=== PATIENT | male | born 1990 | race Two or more races ===

== ENCOUNTER 2017-06-17 14:38 | Emergency (ER) | payer MEDICAID ==
[~2017-06-17] VITALS: Ht 180.3 cm; Wt 74.8 kg
[~2017-06-17 14:38] MED LIST: OLAN20TA17 PO; SERT-160 PO
[2017-06-17 18:36] VITALS: BP 131/94
== END 2017-06-17 22:55 | disposition left against medical advice (07) ==
LOC: ER 14:38
DX: T65.91XA Toxic effect of unspecified substance, accidental (unintentional), initial encounter (principal); Z53.21 Procedure and treatment not carried out due to patient leaving prior to being seen by health care provider; Y93.89 Activity, other specified; Y99.8 Other external cause status; Y92.89 Other specified places as the place of occurrence of the external cause

== ENCOUNTER 2024-04-18 23:05 | Emergency (ER) | payer MEDICAID ==
[~2024-04-18] VITALS: Ht 180.3 cm; Wt 79.3 kg
[~2024-04-18 23:05] MED LIST changes: +OLAN1TAB75 PO; -OLAN20TA17 PO
--- NOTE | 2024-04-18 23:58 | ED.PDOC ---
Psychiatric HPI Comments 33-year-old male who came to er for anxiety. Patient has history of s chizophrenia and depression and regularly takes medications for it. Past few days patient has been feeling very anxious, agitated and restless. Patient has no medications for his anxiety. Worsening of symptoms prompted patient to have the ER. He denies any hallucinations, denies any suicidal or homicidal ideations. Vital signs were stable on arrival Chief Complaint: Anxiety Time Seen by MD: 23:56 Primary Care Provider: MARANDA Gregg Notes: Nurses Notes Information Source: Patient, Relative (Sibling) Mode of Arrival: Ambulatory Severity: Unable to Care for Self, Unable to Control Self Severity of Pain: None Severity of Mental Status: Moderate Severity of Symptoms: Moderate Timing: Days Duration: Intermittent Prehospital treatment: None Presents with: Anxiety, Unclear Thinking Circumstance: Medical Clearance Current substance abuse: None Stressors: None History of: Depression, Schizophrenia Associated signs and symptoms: Hopeless, Anxiety Past Medical History PAST MEDICAL HISTORY: Anxiety, Depression, Schizophrenia Surgical History: Denies all surgeries Family History Family History: Reviewed,noncontributory to illness Social History Smoker: Non-Smoker Alcohol: Denies ETOH Use Drugs: Denies Drug Use Lives In: Home Constitutional: denies: chills, diaphoresis, fatigue, fever, malaise, sweats, weakness, others EENTM: denies: blurred vision, double vision, ear bleeding, ear discharge, ear drainage, ear pain, ear ringing, eye pain, eye redness, hearing loss, mouth pain, mouth swelling, nasal discharge, nose bleeding, nose congestion, nose pain, photophobia, tearing, throat pain, throat swelling, voice changes, others Respiratory: denies: cough, hemoptysis, orthopnea, SOB at rest, shortness of breath, SOB with excertion, stridor, wheezing, others Cardiovascular: denies: chest pain, dizzy spells, diaphoresis, Dyspnea on e xertion, edema, irregular heart beat, left arm pain, lightheadedness, palpitations, PND, syncope, others Gastrointestinal: denies: abdomen distended, abdominal pain, blood streaked bowels, constipated, diarrhea, dysphagia, difficulty swallowing, hematemesis, melena, nausea, poor appetite, poor fluid intake, rectal bleeding, rectal pain, vomiting, others Genitourinary: denies: burning, dysuria, flank pain, frequency, hematuria, incontinence, penile discharge, penile sore, pain, testicle pain, testicle swelling, urgency, others Neurological: denies: dizziness, fainting, headache, left sided numbness, left sided weakness, numbness, paresthesia, pre-existing deficit, right sided numbness, right sided weakness, seizure, speech problems, tingling, tremors, weakness, others Musculoskeletal: denies: back pain, gout, joint pain, joint swelling, muscle pain, muscle stiffness, neck pain, others Integumetry: denies: bruises, change in color, change in hair/nails, dryness, laceration, lesions, lumps, rash, wounds, others Allergic/Immunocompromised: denies: Difficulty Healing, Frequent Infections, Hives, Itching, others Hematologic/Lymphatic: denies: anemia, blood clots, easy bleeding, easy bruising, swollen glands, others Endocrine: denies: excessive hunger, excessive sweating, excessive thirst, excessive urination, flushing, intolerance to cold, intolerance to heat, unexplained weight gain, unexplained weight loss, others Psychiatric: reports: anxiety, panic disorder; denies: bipolar disorder, depression, hopeless, schizophrenia, sleepless, suicidal, others Physical Exam General Appearance: Moderate Distress ([id number] distress due to anxiety concerns.), Normal HEENT: Normal ENT Inspection, Pharynx Normal, TMs Normal Neck: Full Range of Motion, Non-Tender, Normal, Normal Inspection Respiratory: Chest Non-Tender, Lungs Clear, No Accessory Muscle Use, No Respiratory Distress, Normal Breath Sounds Cardiovascular: No Edema, No JVD, No Murmur, No Gallop, Normal Peripheral Pulses, Regular Rate/Rhythm Breast Exam: Deferred Gastrointestinal: No Organomegaly, Non Tender, No Pulsatile Mass, Normal Bowel Sounds, Soft Genitalia: Deferred Pelvic: Deferred Rectal: Deferred Extremities: No calf tenderness, Normal capillary refill, Normal inspection, Normal range of motion, Non-tender, No pedal edema Musculoskeletal : Apperance: Normal Neurologic: Alert, 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 Was a procedure done?: No Psych Differential Dx Psych. Differential Dx: Anxiety, Hopeless, Panic Disorder X-Ray, Labs, Meds, VS Vital Signs Date Time Temp Pulse Resp B/P (MAP) Pulse Ox O2 Delivery O2 Flow Rate FiO2 04/19/24 00:00 118 20 95 Room Air* 0 21 04/19/24 00:00 98.1 118 20 120/84 (96) 95 98.1 04/18/24 23:18 98.0 122 18 115/85 (95) 97 Current Medications Medications (Trade) Dose Ordered Sig/Rahat Route Start Time Stop Time Status Last Admin Alprazolam (Xanax Tablet) 0.5 mg ONCE ONCE PO 04/19/24 00:00 04/19/24 00:01 DC 04/19/24 00:13 X-Ray, Labs, Meds, VS Comment Patient responded well to medication dispensed to the ED today. Advised the patient and family to follow up with psychiatrist for continued evaluation and management of his multiple psychosis concerns including anxiety. Time of 1ST Reevaluation: 00:37 Reevaluation 1ST: Improved Consultation: PCP, Psychiatry Patient Education/Counseling: Diagnosis, Treatment Family Education/Counseling: Diagnosis, Treatment Departure 1 Departure Time of Disposition: 00:37 Impression: Primary Impression: Anxiety Disposition: 01 HOME / SELF CARE / HOMELESS Condition: Stable Additional Instructions: Advised patient utilize medication as needed and follow up with psychiatrist for continued evaluation and discussions related to his multiple psychosis concerns including anxiety. e-Prescriptions Alprazolam (Xanax) 0.5 Mg Tb 1 TAB PO Q12HP PRN, #10 TAB Prov: MARSHA RAMIREZ PAC 04/19/24 Discharged With: Self, Relative Critical Care Note Critical Care Time?: No Stability Stability form required: No Heart Score Heart Score: Heart Score Response (Comments) Value History N/A 0 EKG N/A 0 Age N/A 0 Risk Factors N/A 0 Troponin N/A 0 Total 0 I personally scribed for MARSHA RAMIREZ PAC ([email or web address]) on 04/18/24 at 23:58. Electronically submitted by Rick Samuel ([email or web address]). MARSHA RAMIREZ PAC Apr 18, 2024 23:58
[2024-04-19] VITALS: BP 120/84; PULSE 118; RESP 20; TEMP 98.1; O2SAT 95
[2024-04-19] MEDS: ALPRAZolam 0.5 MG TAB PO ONE (00:13)
[2024-04-19] MEDS ORDERED: ALPR0.5T PO (00:38)
== END 2024-04-19 01:25 | disposition home or self-care (01) ==
LOC: ER 23:05
DX: F41.9 Anxiety disorder, unspecified (principal); F32.A Depression, unspecified; F20.9 Schizophrenia, unspecified

== ENCOUNTER 2024-06-26 03:30 | Emergency (ER) | payer MEDICAID ==
[~2024-06-26] VITALS: Ht 172.7 cm; Wt 72.7 kg
[~2024-06-26 03:30] MED LIST changes: +ALPR0.5T PO
--- NOTE | 2024-06-26 06:49 | ED.PDOC ---
GI ASSESSMENT HPI Comments 34 year old male presents to the ED with chief complaint of abdominal pain. Patient reports that he has been experiencing nausea, vomiting, and abdominal pain since earlier this morning. Patient relays that he believes he was poisoned. Patient denies any diarrhea, chest pain, dizziness, headache, fever, or chills. Chief Complaint: Nausea/Vomiting Time Seen by MD: 06:44 Primary Care Provider: MARANDA Reviewed Notes: Nurses Notes, Medications, Allergies Allergies: Coded Allergies: NO KNOWN ALLERGIES (Unverified , 09/30/14) Home Meds Active Scripts Alprazolam (Xanax) 0.5 Mg Tb, 1 TAB PO Q12HP PRN, #10 TAB Prov:MARSHA RAMIREZ Danielle PAC 04/19/24 Reported Medications Sertraline Hcl (Sertraline Hcl) 100 Mg Tab, 1 TAB PO DAILY, #90 TAB 1 Refill 01/07/16 Olanzapine (OLANZAPINE) 20 Mg Tab, 1 TAB PO QPM, #30 TAB 1 Refill 01/07/16 Information Source: Patient Mode of Arrival: EMS Timing: Hours Duration: Since onset Prehospital treatment: None Quality: Aching Vomitus: Watery Stool: Watery Severity: Moderate Recent: None Recent Hx of: None Pain Location: Diffuse Modifying Factors: Nothing Associated sign and symptoms: Nausea, Vomiting, Abdominal Pain Past Medical History PAST MEDICAL HISTORY: Anxiety, Depression, Schizophrenia Surgical History: Denies all surgeries Family History Family History: Reviewed,noncontributory to illness Social History Smoker: Non-Smoker Alcohol: Denies ETOH Use Drugs: Denies Drug Use Lives In: Home Constitutional: denies: chills, diaphoresis, fatigue, fever, malaise, sweats, weakness, others EENTM: denies: blurred vision, double vision, ear bleeding, ear discharge, ear drainage, ear pain, ear ringing, eye pain, eye redness, hearing loss, mouth pain, mouth swelling, nasal discharge, nose bleeding, nose congestion, nose pain, photophobia, tearing, throat pain, throat swelling, voice changes, others Respiratory: denies: cough, hemoptysis, orthopnea, SOB at rest, shortness of breath, SOB with excertion, stridor, wheezing, others Cardiovascular: denies: chest pain, dizzy spells, diaphoresis, Dyspnea on exertion, edema, irregular heart beat, left arm pain, lightheadedness, palpitations, PND, syncope, others Gastrointestinal: reports: abdominal pain, nausea, vomiting; denies: abdomen distended, blood streaked bowels, constipated, diarrhea, dysphagia, difficulty swallowing, hematemesis, melena, poor appetite, poor fluid intake, rectal bleeding, rectal pain, others Genitourinary: denies: burning, dysuria, flank pain, frequency, hematuria, incontinence, penile discharge, penile sore, pain, testicle pain, testicle swelling, urgency, others Neurological: denies: dizziness, fainting, headache, left sided numbness, left sided weakness, numbness, paresthesia, pre-existing deficit, right sided numbness, right sided weakness, seizure, speech problems, tingling, tremors, weakness, others Musculoskeletal: denies: back pain, gout, joint pain, joint swelling, muscle pain, muscle stiffness, neck pain, others Integumetry: denies: bruises, change in color, change in hair/nails, dryness, laceration, lesions, lumps, rash, wounds, others Allergic/Immunocompromised: denies: Difficulty Healing, Frequent Infections, Hives, Itching, others Hematologic/Lymphatic: denies: anemia, blood clots, easy bleeding, easy bruising, swollen glands, others Endocrine: denies: excessive hunger, excessive sweating, excessive thirst, excessive urination, flushing, intolerance to cold, intolerance to heat, unexpla ined weight gain, unexplained weight loss, others Psychiatric: denies: anxiety, bipolar disorder, depression, hopeless, panic disorder, schizophrenia, sleepless, suicidal, others All Other Systems: Reviewed and Negative Physical Exam General Appearance: Moderate Distress, Normal HEENT: Normal ENT Inspection, PERRL/EOMI Neck: Full Range of Motion, Non-Tender, Normal, Normal Inspection Respiratory: Chest Non-Tender, Lungs Clear, No Accessory Muscle Use, No Respiratory Distress, Normal Breath Sounds Cardiovascular: No Edema, No JVD, No Murmur, No Gallop, Normal Peripheral Pulses, Regular Rate/Rhythm Breast Exam: Deferred Gastrointestinal: No Organomegaly, Non Tender, No Pulsatile Mass, Normal Bowel Sounds, Soft Genitalia: Deferred Pelvic: Deferred Rectal: Deferred Extremities: No calf tenderness, Normal capillary refill, Normal inspection, Normal range of motion, Non-tender, No pedal edema Musculoskeletal : Apperance: Normal Neurologic: Alert, 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 Was a procedure done?: No GI differential Dx Differential Diagnosis: Constipation, Diverticular disease, Esophagitis, Gastritis/PUD, Gastroenteritis X-Ray, Labs, Meds, VS Vital Signs Date Time Temp Pulse Resp B/P (MAP) Pulse Ox O2 Delivery O2 Flow Rate FiO2 06/26/24 03:52 97.5 112 18 195/78 (117) 98 Patient alert. Anxious. Vitals stable. Answering all questions. Blood pressure elevated. Was given clonidine. History of psychiatric illness pain Denies suicidal homicidal ideation. Medically cleared. Psychiatric evaluation. Time of 1ST Reevaluation: 07:44 Reevaluation 1ST: Improved Patient Education/Counseling: Diagnosis, Treatment Family Education/Counseling: No Family Present Additional Information I reviewed the following notes from patient's past medical encounters: 04/18/24 for anxiety The following tests were ordered, and results were reviewed by me: UDS Additional Information was gathered from interviewing the following independent historians: None I reviewed and agreed with the following test results read by other providers: None I discussed treatment and results with medical personnel. Departure 1 Departure Time of Disposition: 07:28 Impression: Primary Impression: Hypertensive urgency Additional Impression: Anxiety Disposition: 30 STILL A PATIENT Condition: Good Discharged With: Self Critical Care Note Critical Care Time?: Yes (45 min-critical care time only) Stability Stability form required: No Heart Score Heart Score: Heart Score Response (Comments) Value History N/A 0 EKG N/A 0 Age N/A 0 Risk Factors N/A 0 Troponin N/A 0 Total 0 I personally scribed for EARL NESS MD ([email or web address]) on 06/26/24 at 06:49. Electronically submitted by Jamal Matamoros ([email or web address]). I personally scribed for EARL NESS MD ([email or web address]) on 06/26/24 at 07:11. Electronically submitted by Jamal Matamoros ([email or web address]). EARL NESS MD Jun 26, 2024 06:49
[2024-06-26 08:25] VITALS: BP 103/68; TEMP 98.3
[2024-06-26] MEDS: cloNIDine HCL 0.1 MG TAB PO ONE (08:44)
[2024-06-26 08:50] VITALS: PULSE 106; RESP 18; O2SAT 94
[2024-06-26] MEDS: ONDANSETRON ODT 4 MG TAB PO ONE (08:56)
[2024-06-26 10:59] LABS: Amphetamine Screen, Urine Neg (NEGATIVE); Barbiturate Scree,Urine Neg (NEGATIVE); Benzodiazephine Screen, Urine Neg (NEGATIVE); Cannabinoid Screen, Urine Pos (NEGATIVE); Cocaine Screen, Urine Neg (NEGATIVE); Opiate Scree,Urine Neg (NEGATIVE); Phencyclidine Screen, Urine Neg (NEGATIVE)
== END 2024-06-26 13:19 | disposition home or self-care (01) ==
LOC: EDBD 03:30 → ER 03:30
DX: I16.0 Hypertensive urgency (principal); F41.9 Anxiety disorder, unspecified; F20.9 Schizophrenia, unspecified; F32.A Depression, unspecified
CPT/HCPCS: 80307; 99283; Q0162